=== PATIENT | male | born 1935 | race Caucasian/White ===

== ENCOUNTER 2019-06-23 21:02 | Emergency (ER) | payer OTHER ==
[~2019-06-23] VITALS: Ht 182.9 cm; Wt 77.2 kg
[2019-06-23 21:09] VITALS: BP 139/58; Ht 182.9 cm; Wt 77.2 kg
== END 2019-06-23 22:00 | disposition home or self-care (01) ==
LOC: ED 21:02
DX: S61.551A Open bite of right wrist, initial encounter (principal); W55.01XA Bitten by cat, initial encounter; Y93.89 Activity, other specified; Y92.89 Other specified places as the place of occurrence of the external cause; Y99.8 Other external cause status
CPT/HCPCS: 90715